=== PATIENT | female | born 1975 | race Caucasian/White ===

== ENCOUNTER 2017-05-05 21:22 | Emergency (ER) | payer MEDICAID ==
[~2017-05-05] VITALS: Ht 157.5 cm; Wt 79.5 kg
[2017-05-05 21:25] VITALS: TEMP 98.2
[2017-05-05 22:08] VITALS: BP 138/79; PULSE 75
== END 2017-05-05 22:03 | disposition home or self-care (01) ==
LOC: COL.ER 21:22
DX: S60.412A Abrasion of right middle finger, initial encounter (principal); Z23 Encounter for immunization; W45.8XXA Other foreign body or object entering through skin, initial encounter; Y92.199 Unspecified place in other specified residential institution as the place of occurrence of the external cause

== ENCOUNTER 2018-04-18 20:10 | Emergency (ER) | payer MEDICAID ==
[~2018-04-18] VITALS: Ht 157.5 cm; Wt 84.1 kg
[2018-04-18 20:13] VITALS: BP 178/90; PULSE 66; TEMP 98.1
[2018-04-18] MEDS ORDERED: DOXYCYCLINE 10100 MG PO (21:20)
== END 2018-04-18 21:30 | disposition home or self-care (01) ==
LOC: COL.ER 20:10
DX: J02.9 Acute pharyngitis, unspecified (principal); R23.8 Other skin changes

== ENCOUNTER 2019-08-01 23:58 | Emergency (ER) | payer OTHER, MEDICAID ==
[~2019-08-01] VITALS: Ht 157.5 cm; Wt 77.3 kg
[~2019-08-01 23:58] MED LIST: DOXYCYCLINE 10100 MG PO
[2019-08-02 00:13] VITALS: TEMP 97.3
[2019-08-02 00:40] LABS: BASO # 0.1 (0.0-0.2); BASO % 0.7 % (0.0-2.0); EOS # 0.1 (0.0-0.7); EOS % 1.5 % (0-4.0); GRAN # 5.5 (1.4-6.5); GRAN % 65.1 % (42.2-75.2); HEMATOCRIT 37.3 % (37.0-47.0); HEMOGLOBIN 11.6 g/dl (12.5-16.0); LYMPH # 2.1 (1.2-3.4); LYMPH % 24.9 % (20.0-51.0); MEAN CELL VOLUME 78 fl (80.0-100.0); MEAN CORPUSCULAR HEMOGLOBIN 24 pg (27.0-31.0); MEAN CORPUSCULAR HGB CONC 31 g/dl (33.0-37.0); MEAN PLATELET VOLUME 8.7 fl (7.4-10.4); MONO # 0.6 (0.1-0.6); MONO % 7.6 % (1.7-9.3); PLATELET COUNT 343 K/mm3 (130-400); RED BLOOD COUNT 4.78 M/mm3 (4.10-5.30); REDCELL DISTRIBUTION WIDTH-CV 15.4 % (11.5-14.5)
[2019-08-02 00:45] LABS: PROTHROMBIN TIME 11.4 SECONDS (9.7-12.8)
[2019-08-02] MEDS ORDERED: BACTRIM DS 8001 TAB PO (00:47)
[2019-08-02 00:51] LABS: ALANINE AMINOTRANSFERASE 18 U/L (9-52); ALBUMIN 4.2 gm/dL (3.5-5.0); ALKALINE PHOSPHATASE 87 U/L (50-136); ANION GAP 9 mmol/L (7-16); AST,SGOT 26 U/L (15-37); BILIRUBIN,TOTAL 0.2 mg/dL (0.0-1.0); BLOOD UREA NITROGEN 12 mg/dL (7-17); CALCIUM 8.7 mg/dL (8.4-10.2); CARBON DIOXIDE 24 mmol/L (22-30); CHLORIDE 105 mmol/L (98-107); GLUCOSE 135 mg/dL (74-106); LIPASE 109 U/L (23-300); POTASSIUM 3.6 mmol/L (3.4-5.0); SODIUM 139 mmol/L (137-145); TOTAL PROTEIN 7.2 gm/dL (6.4-8.2)
[2019-08-02 01:04] LABS: TROPONIN-I < 0.012 ng/mL (0.000-0.035)
[2019-08-02 01:55] LABS: COLLECTION METHOD CLEAN CATCH
[2019-08-02 02:01] LABS: PH 6 (5-8); SQUAMOUS EPITHELIAL 0-2 /hpf; URINE APPEARANCE Clear; URINE BACTERIA None Seen /hpf; URINE BILIRUBIN Negative (NEGATIVE); URINE BLOOD Negative (NEGATIVE); URINE COLOR Yellow; URINE GLUCOSE Negative (NEGATIVE); URINE KETONE Trace (NEGATIVE); URINE LEUKOCYTE ESTERASE Negative (NEGATIVE); URINE NITRATE Negative (NEGATIVE); URINE PROTEIN(semi-quant) Negative (NEGATIVE); URINE RBC 0-2 /hpf; URINE UROBILINOGEN Negative (NEGATIVE)
[2019-08-02 03:18] VITALS: BP 124/66; PULSE 59
== END 2019-08-02 03:18 | disposition home or self-care (01) ==
LOC: COL.ER 23:58
PROVIDERS: Emergency Medicine
DX: T36.8X5A Adverse effect of other systemic antibiotics, initial encounter (principal); R20.2 Paresthesia of skin; Z98.890 Other specified postprocedural states; Z87.891 Personal history of nicotine dependence
CPT/HCPCS: J7030

== ENCOUNTER → 2020-03-26 | Outpatient (CLI) | payer OTHER, MEDICAID ==
[~2020-03-26] MED LIST changes: +BACTRIM DS 8001 TAB PO
[2020-03-26 08:55] LABS: COLLECTION METHOD CLEAN CATCH
[2020-03-26 09:08] LABS: BASO % 0.4 % (0.0-2.0); EOS # 0.1 (0.0-0.7); EOS % 1.5 % (0-4.0); GRAN # 2.3 (1.4-6.5); GRAN % 50.1 % (42.2-75.2); HEMATOCRIT 38.6 % (37.0-47.0); HEMOGLOBIN 11.9 g/dl (12.5-16.0); LYMPH # 1.8 (1.2-3.4); MEAN CELL VOLUME 79 fl (80.0-100.0); MEAN CORPUSCULAR HEMOGLOBIN 24 pg (27.0-31.0); MEAN CORPUSCULAR HGB CONC 31 g/dl (33.0-37.0); MEAN PLATELET VOLUME 8.7 fl (7.4-10.4); MONO # 0.4 (0.1-0.6); MONO % 7.6 % (1.7-9.3); PLATELET COUNT 357 K/mm3 (130-400); RED BLOOD COUNT 4.87 M/mm3 (4.10-5.30); REDCELL DISTRIBUTION WIDTH-CV 15.5 % (11.5-14.5)
[2020-03-26 09:18] LABS: ALBUMIN 4.4 gm/dL (3.5-5.0); BILIRUBIN,TOTAL 0.7 mg/dL (0.0-1.0); C-REACTIVE PROTEIN 1.4 mg/dL (0.0-0.9); CALCIUM 8.9 mg/dL (8.4-10.2); CREATININE, serum 0.69 (0.52-1.25); POTASSIUM 4.4 mmol/L (3.4-5.0); TOTAL PROTEIN 7.8 gm/dL (6.4-8.2)
[2020-03-26 09:21] LABS: MUCOUS Present /lpf; PH 5 (5-8); URINE APPEARANCE Clear; URINE BACTERIA None Seen /hpf; URINE BILIRUBIN Negative (NEGATIVE); URINE BLOOD Negative (NEGATIVE); URINE COLOR Yellow; URINE GLUCOSE Negative (NEGATIVE); URINE KETONE 1+ (NEGATIVE); URINE LEUKOCYTE ESTERASE Negative (NEGATIVE); URINE NITRATE Negative (NEGATIVE); URINE PROTEIN(semi-quant) Negative (NEGATIVE); URINE RBC 0-2 /hpf; URINE UROBILINOGEN Negative (NEGATIVE)
== END ==
LOC: COL.LAB 08:26
PROVIDERS: Registered Nurse
DX: K21.9 Gastro-esophageal reflux disease without esophagitis (principal); R10.9 Unspecified abdominal pain; R14.0 Abdominal distension (gaseous); R19.7 Diarrhea, unspecified

== ENCOUNTER → 2020-04-06 | Outpatient (CLI) | payer OTHER, MEDICAID | LOC: COL.RAD 07:43 | DX: K21.9 Gastro-esophageal reflux disease without esophagitis (principal); N20.0 Calculus of kidney; R19.00 Intra-abdominal and pelvic swelling, mass and lump, unspecified site | CPT/HCPCS: Q9967 ==